=== PATIENT | male | born 1970 | race African-American/Black ===

== ENCOUNTER 2016-11-27 13:17 | Emergency (ER) | payer SELFPAY ==
[2016-11-27] MEDS ORDERED: Ibuprofen 800 MG TAB ONE (13:54)
--- NOTE | 2016-11-27 14:27 | ERRECORD ---
[facility] EMERGENCY RECORD HPI KNEE (13:44 BPIC) CHIEF COMPLAINT: Patient presents for evaluation of pain, to the left knee. HISTORIAN: History provided by patient, pt with sharp left knee pain and feels a popping sensation when he turns his knee since last friday. does not remember any injury or unusual activity. He went to work today, but standing in his boots made the knee hurt even worse. ROS (14:01 BPIC) CONSTITUTIONAL: Negative constitutional review of systems. EYES: Negative eye review of systems. ENT: Negative ears, nose, throat review of systems. CARDIOVASCULAR: Negative cardiovascular review of systems. RESPIRATORY: Negative respiratory review of systems. GI: Negative gastrointestinal review of systems. MUSCULOSKELETAL: see hpi. SKIN: Negative skin review of systems. PSYCHIATRIC: Negative psychiatric review of systems. PAST MEDICAL HISTORY MEDICAL HISTORY: No past medical history. (13:32 SFRE) MALE SURGICAL HISTORY: Patient has no surgical history. (13:32 SFRE) PSYCHIATRIC HISTORY: No previous psychiatric history. (13:32 SFRE) SOCIAL HISTORY: Patient drinks socially, Patient denies drug use, Patient has no smoking history. (13:32 SFRE) NOTES: I have reviewed and agree with the PMH/PSxH/FamHx/SocHx obtained by the nurse. (14:01 BPIC) KNOWN ALLERGIES No Known Drug Allergies CURRENT MEDICATIONS (13:28 SFRE) None VITAL SIGNS (13:26 SFRE) VITAL SIGNS: BP: 143/99, Pulse: 98, Resp: 18, Temp: 98.2 (Tympanic), Pain: 9 (Sharp), O2 sat: 100 on Room Air, Time: 11/27/2016 13:26. PHYSICAL EXAM (14:01 BPIC) CONSTITUTIONAL: Vital signs reviewed, Patient afebrile, Pulse normal, Blood pressure normal, Respiratory rate normal, Patient appears non toxic, Patient appears pain free, Patient alert and oriented to person, place and time. HEAD: Head exam included findings of head atraumatic, normocephalic. EYES: Eye exam included findings of eyelids normal to inspection, Extraocular muscles intact, Conjunctiva normal. &a-1R&a+25V*p+0X*b9248V*c202B*c15G*c2P*p-0X&a-25V&a+1R Name: Jaron Roberto SR, DOB: 1970 M46 MedRec: [id number] AcctNum: [id number] Prepared: FriNov 27, 2016 18:38 by Interface Page 1 of 3 pMD [facility] EMERGENCY RECORD ENT: Ear exam normal, Nose exam normal. NECK: Neck exam included findings of normal range of motion, Trachea midline. RESPIRATORY CHEST: Respiratory exam included findings of no respiratory distress, Chest exam included findings of chest movement symmetrical, Chest expansion equal. CARDIOVASCULAR: Cardiovascular exam included findings of heart rate regular rate and rhythm. LOWER EXTREMITY: tenderness to medial left knee. no ligament laxity. NEURO: Neuro exam findings include patient oriented to person, place and time, Speech normal. PSYCHIATRIC: Psychiatric exam included findings of patient oriented to person place and time, Normal affect. MEDICATION ADMINISTRATION SUMMARY Drug Name: ibuprofen, Dose Ordered: 800 mg, Route: Oral, Status: Given, Time: 14:00 11/27/2016, Detailed record available in Medication Service section. DOCTOR NOTES (14: BPIC) TEXT: I discussed the diagnosis with the patient prior to discharge. All questions were answered. There is no indication for admission currently and the patient will follow up with a primary care physician. Any pertinent labs or imaging were reviewed and dicussed with the patient. If any new or emergent symptoms occur, the patient will return to the emergency department. PROBLEM LIST No recorded problems DIAGNOSIS (14: BPIC) FINAL: PRIMARY: LEFT knee pain. PRESCRIPTION (14: BPIC) ibuprofen: TABLET : 800 mg : ORAL : Quantity: 800 Unit: mg Route: ORAL Schedule: every 8 hours PRN Dispense: 60 Unit: tab(s) May substitute. Refills: No Refills . NOTES: No Refills. traMADol: TABLET : 50 mg : ORAL : Quantity: 50 Unit: mg Route: ORAL Schedule: every 6 hours PRN Dispense: 20 Unit: tab(s) May substitute. Refills: No Refills . NOTES: ^s=No Refills No Refills. DISPOSITION PATIENT: Disposition Type: Discharge, Disposition: *Discharge &a-1R&a+25V*p+0X*v1145F*c202B*c15G*c2P*p-0X&a-25V&a+1R Name: Jaron Roberto : 1970 M46 MedRec: [id number] AcctNum: [id number] Prepared: FriNov 27, 2016 18:38 by Interface Page 2 of 3 pMD [facility] EMERGENCY RECORD Home, Condition: Good. (14:02 BPIC) Patient left the department. (14:19 SFRE) Anaya: BPIC=MD Luigi, Chon SFRE=ZAC Hebert, Denisha &a-1R&a+25V*p+0X*h0675Y*c202B*c15G*c2P*p-0X&a-25V&a+1R Name: Jaron Roberto : 1970 M46 MedRec: [id number] AcctNum: [id number] Prepared: FriNov 27, 2016 18:38 by Interface Page 3 of 3 pMD MTDD
--- NOTE | 2016-11-27 14:27 | PICIS ---
[facility] EMERGENCY RECORD TRIAGE (13:27 SFRE) TRIAGE NOTES: PAIN TO LEFT KNEE DENIES RECENT INJURY. (13:27 SFRE) PATIENT: NAME: Jaron Roberto SR, AGE: 46, GENDER: male, : Fri1970, TIME OF GREET: FriNov 27, 2016 13:18, PREFERRED LANGUAGE: Wolof, ETHNICITY: Not or , ECODE BILLING MAP: [facility], SSN: [id number], Zip Code: [address], KG WEIGHT: 83.46, PHONE: , , , PERSON ID: [id number], PCP: NO PCP. (13:27 SFRE) COMPLAINT: PAINFUL L KNEE. (13:27 SFRE) ADMISSION: URGENCY: 5 Fast Track, ADMISSION SOURCE: Home, TRANSPORT: Walk-in, BED: TRIAGE. (13:27 SFRE) ASSESSMENT: Symptoms began 11/23/2016 13:31. (13:32 SFRE) PAIN: Patient complains of pain described as, Pain is constant, Aggravating factors:, Pain exacerbated by extension, Pain exacerbated by movement. (13:32 SFRE) IMMUNIZATIONS: Flu vaccine not up to date. (13:32 SFRE) SIRS SCORING: Heart Rate 55-109 (0), Temp range 96.8-101.1 (0), respiratory rate 12-24 (0), Mental Status altered: no (0). (13:32 SFRE) TRIAGE SCREENING: Patient denies suicidal ideation, Patient denies presence of domestic violence. (13:32 SFRE) PROVIDERS: TRIAGE NURSE: Denisha Hebert RN. (13:27 SFRE) VITAL SIGNS: BP 143/99, Pulse 98, Resp 18, Temp 98.2, (Tympanic), Pain 9, (Sharp), O2 Sat 100, on Room Air, Time 11/27/2016 13:26. (13:26 SFRE) PREVIOUS VISIT ALLERGIES: No Known Drug Allergies. (13:27 SFRE) No Known Drug Allergies. (13:32 SFRE) KNOWN ALLERGIES No Known Drug Allergies CURRENT MEDICATIONS (13:28 SFRE) None VITAL SIGNS (13:26 SFRE) VITAL SIGNS: BP: 143/99, Pulse: 98, Resp: 18, Temp: 98.2 (Tympanic), Pain: 9 (Sharp), O2 sat: 100 on Room Air, Time: 11/27/2016 13:26. NURSING ASSESSMENT: EXTREMITY LOWER (13:50 SFRE) CONSTITUTIONAL: Patient arrives ambulatory, Gait steady, History obtained from patient, Patient appears comfortable, Patient cooperative, Patient alert, Oriented to person, place and time, Skin warm, Skin dry, Skin normal in color, Mucous membranes pink, Mucous membranes moist, Patient is well-groomed, Patient complains of LEFT KNEE. PAIN: sharp pain, shooting pain, to the left knee, Onset of pain 11/26/2016, on a scale &a-1R&a+25V*p+0X*s0235S*c202B*c15G*c2P*p-0X&a-25V&a+1R Name: Jaron Roberto SR : 1970 M46 MedRec: [id number] AcctNum: [id number] Prepared: FriNov 27, 2016 18:45 by Interface Page 1 of 5 pMD [facility] EMERGENCY RECORD 0-10 patient rates pain as 9, Pain exacerbated by, ambulation, bending, Nothing has been tried to alleviate the pain. RIGHT LOWER EXTREMITY: Right lower extremity assessment findings include capillary refill less than 2 seconds, Skin color normal, Skin temperature warm, Distal sensation intact, Muscle tone normal, Notes: DENIES INJURY. SAFETY: Side rails up, Cart/Stretcher in lowest position, Family at bedside, Call light within reach, Hospital ID band on. NURSING PROCEDURE: DISCHARGE NOTE (14:18 SFRE) DISCHARGE: Patient discharged to home, ambulating without assistance, driving self, unaccompanied, Summary of Care printed/ provided, Patient requested and was provided an electronic copy of Discharge Instructions, Discharge instructions given to patient, Simple or moderate discharge teaching performed, by ZAC OSBORNE, F/U WITH PCP. RX DIRECTED. RETURN TO ED NEEDED FOR NEW/CONCERNING OR WORSENING SYMPTOMS., Prescriptions given and instructions on side effects given, Name of prescription(s) given: TRAMADOL, IBUPRFEN, Above person(s) verbalized understanding of discharge instructions and follow-up care. NURSING PROCEDURE: NURSE NOTES (13:58 SFRE) NURSES NOTES: Notes: REQUESTING A STRONGER PRESCRIPTION THAN TRAMADOL. NURSING PROCEDURE: SPLINTING (13:59 SFRE) SPLINTING: Splinting indicated for pain control, Splint applied to, the left knee, by ZAC OSBORNE, 4 inch shanika wrap applied, Immobilized in position of comfort. SAFETY: Side rails up, Cart/Stretcher in lowest position, Family at bedside, Call light within reach, Hospital ID band on. ORDER DETAILS Order Name: XR Knee Lt 4 View STANDARD, Status: Active, Time: 13:43 11/27/2016, User: [facility], - Ordered for: MD Meyers Bryan, - Entered by: MD Meyers Bryan - FriNov 27, 2016 13:43, - Quantity: 1. MEDICATION ADMINISTRATION SUMMARY Drug Name: ibuprofen, Dose Ordered: 800 mg, Route: Oral, Status: Given, Time: 14:00 11/27/2016, Detailed record available in Medication Service section. MEDICATION SERVICE (14:00 [facility]) ibuprofen: Order: ibuprofen - Dose: 800 mg : Oral Ordered by: Chon Meyers MD &a-1R&a+25V*p+0X*k2877R*c202B*c15G*c2P*p-0X&a-25V&a+1R Name: Jaron Roberto : 1970 M46 MedRec: [id number] AcctNum: [id number] Prepared: FriNov 27, 2016 18:45 by Interface Page 2 of 5 pMD [facility] EMERGENCY RECORD Entered by: Chon Meyers MD FriNov 27, 2016 13:43 , Acknowledged by: Denisha Hebert RN FriNov 27, 2016 13:50 Documented as given by: Denisha Hebert RN FriNov 27, 2016 14:00 Patient, Medication, Dose, Route and Time verified prior to administration. Amount given: 800MG, Site: Medication administered P.O., Correct patient, time, route, dose and medication confirmed prior to administration, Patient advised of actions and side-effects prior to administration, Allergies confirmed and medications reviewed prior to administration, Patient in position of comfort, Side rails up, Cart in lowest position, Family at bedside. HPI KNEE (13:44 BPIC) CHIEF COMPLAINT: Patient presents for evaluation of pain, to the left knee. HISTORIAN: History provided by patient, pt with sharp left knee pain and feels a popping sensation when he turns his knee since last friday. does not remember any injury or unusual activity. He went to work today, but standing in his boots made the knee hurt even worse. ROS (14:01 BPIC) CONSTITUTIONAL: Negative constitutional review of systems. EYES: Negative eye review of systems. ENT: Negative ears, nose, throat review of systems. CARDIOVASCULAR: Negative cardiovascular review of systems. RESPIRATORY: Negative respiratory review of systems. GI: Negative gastrointestinal review of systems. MUSCULOSKELETAL: see hpi. SKIN: Negative skin review of systems. PSYCHIATRIC: Negative psychiatric review of systems. PAST MEDICAL HISTORY MEDICAL HISTORY: No past medical history. (13:32 SFRE) MALE SURGICAL HISTORY: Patient has no surgical history. (13:32 SFRE) PSYCHIATRIC HISTORY: No previous psychiatric history. (13:32 SFRE) SOCIAL HISTORY: Patient drinks socially, Patient denies drug use, Patient has no smoking history. (13:32 SFRE) NOTES: I have reviewed and agree with the PMH/PSxH/FamHx/SocHx obtained by the nurse. (14:01 BPIC) PHYSICAL EXAM (14:01 BPIC) CONSTITUTIONAL: Vital signs reviewed, Patient afebrile, Pulse normal, Blood pressure normal, Respiratory rate normal, Patient appears non toxic, Patient appears pain free, Patient alert and oriented to person, place and time. HEAD: Head exam included findings of head atraumatic, normocephalic. EYES: Eye exam included findings of eyelids normal to inspection, &a-1R&a+25V*p+0X*b2611Y*c202B*c15G*c2P*p-0X&a-25V&a+1R Name: Jaron Roberto : 1970 M46 MedRec: [id number] AcctNum: [id number] Prepared: FriNov 27, 2016 18:45 by Interface Page 3 of 5 pMD [facility] EMERGENCY RECORD Extraocular muscles intact, Conjunctiva normal. ENT: Ear exam normal, Nose exam normal. NECK: Neck exam included findings of normal range of motion, Trachea midline. RESPIRATORY CHEST: Respiratory exam included findings of no respiratory distress, Chest exam included findings of chest movement symmetrical, Chest expansion equal. CARDIOVASCULAR: Cardiovascular exam included findings of heart rate regular rate and rhythm. LOWER EXTREMITY: tenderness to medial left knee. no ligament laxity. NEURO: Neuro exam findings include patient oriented to person, place and time, Speech normal. PSYCHIATRIC: Psychiatric exam included findings of patient oriented to person place and time, Normal affect. EVENTS TRANSFER: Triage to Emergency Triage. (FriNov 27, 2016 13:27 SFRE) Emergency Triage to Main ED -04. (13:28 SFRE) Removed from Emergency Main ED -04. (14:19 SFRE) DOCTOR NOTES (14:02 BPIC) TEXT: I discussed the diagnosis with the patient prior to discharge. All questions were answered. There is no indication for admission currently and the patient will follow up with a primary care physician. Any pertinent labs or imaging were reviewed and dicussed with the patient. If any new or emergent symptoms occur, the patient will return to the emergency department. PROBLEM LIST No recorded problems DIAGNOSIS (14:02 BPIC) FINAL: PRIMARY: LEFT knee pain. DISPOSITION PATIENT: Disposition Type: Discharge, Disposition: *Discharge Home, Condition: Good. (14:02 BPIC) Patient left the department. (14:19 SFRE) INSTRUCTION (14:03 BPIC) DISCHARGE: KNEE PAIN, MENISCUS INJURY (POSSIBLE). FOLLOWUP: MARLEEN, -, Primary Care Referral Line, , MD Andrzej, Elias, Orthopedics, [address], [address], [facility] [address], . SPECIAL: Thank you for choosing [facility] for your care today! Please follow up with your doctor in the next 2-3 days. Return to the emergency department with any emergent or worsening concerns. God Bless you!. &a-1R&a+25V*p+0X*q0478T*c202B*c15G*c2P*p-0X&a-25V&a+1R Name: Jaron Roberto : 1970 M46 MedRec: [id number] AcctNum: [id number] Prepared: FriNov 27, 2016 18:45 by Interface Page 4 of 5 pMD [facility] EMERGENCY RECORD PRESCRIPTION (14:02 BPIC) ibuprofen: TABLET : 800 mg : ORAL : Quantity: 800 Unit: mg Route: ORAL Schedule: every 8 hours PRN Dispense: 60 Unit: tab(s) May substitute. Refills: No Refills . NOTES: No Refills. traMADol: TABLET : 50 mg : ORAL : Quantity: 50 Unit: mg Route: ORAL Schedule: every 6 hours PRN Dispense: 20 Unit: tab(s) May substitute. Refills: No Refills . NOTES: ^s=No Refills No Refills. ADMIN DIGITAL SIGNATURE: ZAC Hebert Stacey. (14:19 [facility]) MD Meyers Bryan. (18:30 [facility]) Anaya: BPIC=MD Meyers Bryan SFRE=ZAC Hebert Stacey &a-1R&a+25V*p+0X*a0236T*c202B*c15G*c2P*p-0X&a-25V&a+1R Name: LourdesJaron salter : 1970 M46 MedRec: [id number] AcctNum: [id number] Prepared: FriNov 27, 2016 18:45 by Interface Page 5 of 5 pMD MTDD
== END 2016-11-27 14:12 | disposition home or self-care (01) ==
LOC: MADERS 13:17
DX: M25.562 Pain in left knee (principal)
CPT/HCPCS: 99283

== ENCOUNTER 2017-11-13 16:04 | Emergency (ER) | payer SELFPAY ==
[2017-11-13] MEDS ORDERED: AMOXicillin 250 MG CAP ONE (17:21)
[2017-11-13] MEDS ORDERED: Benzonatate 100 MG CAP ONE (17:21)
== END 2017-11-13 17:40 | disposition home or self-care (01) ==
LOC: MADERS 16:04
DX: J20.9 Acute bronchitis, unspecified (principal); G47.00 Insomnia, unspecified
CPT/HCPCS: 96372; J1040

== ENCOUNTER 2018-05-15 09:22 | Emergency (ER) | payer SELFPAY ==
[2018-05-15] MEDS ORDERED: AMOXicillin 250 MG CAP ONE (10:12)
[2018-05-15] MEDS ORDERED: Benzonatate 100 MG CAP ONE (10:12)
== END 2018-05-15 10:20 | disposition home or self-care (01) ==
LOC: MADERS 09:22
DX: J20.9 Acute bronchitis, unspecified (principal); F41.9 Anxiety disorder, unspecified; I10 Essential (primary) hypertension; Z79.899 Other long term (current) drug therapy
CPT/HCPCS: 99283

== ENCOUNTER 2018-06-29 17:19 | Emergency (ER) | payer SELFPAY | END 2018-06-29 19:43 | disposition home or self-care (01) | LOC: MADERS 17:19 | DX: T24.202A Burn of second degree of unspecified site of left lower limb, except ankle and foot, initial encounter (principal); T24.101A Burn of first degree of unspecified site of right lower limb, except ankle and foot, initial encounter; F41.9 Anxiety disorder, unspecified; I10 Essential (primary) hypertension; Z79.899 Other long term (current) drug therapy; X19.XXXA Contact with other heat and hot substances, initial encounter | CPT/HCPCS: 16020 ==

== ENCOUNTER 2018-07-05 20:43 | Emergency (ER) | payer SELFPAY | END 2018-07-05 21:21 | disposition home or self-care (01) | LOC: MADERS 20:43 | DX: T24.232A Burn of second degree of left lower leg, initial encounter (principal); F41.9 Anxiety disorder, unspecified; I10 Essential (primary) hypertension; X19.XXXA Contact with other heat and hot substances, initial encounter | CPT/HCPCS: 99283 ==

== ENCOUNTER 2018-09-25 09:04 | Emergency (ER) | payer SELFPAY ==
[2018-09-25] MEDS ORDERED: Benzonatate 100 MG CAP ONE (09:51)
--- NOTE | 2018-09-25 11:22 | RAD ---
PA AND LATERAL VIEWS CHEST: Date: 09/25/18 HISTORY: Cough. FINDINGS: The heart size is normal. The lungs are expanded without focal areas of consolidation, pneumothorax, or pleural effusions. No acute osseous abnormalities are seen. IMPRESSION: No radiographic evidence of acute cardiopulmonary process. POS: [facility]
== END 2018-09-25 11:02 | disposition home or self-care (01) ==
LOC: MADERS 09:04
DX: J20.9 Acute bronchitis, unspecified (principal); I10 Essential (primary) hypertension; F41.9 Anxiety disorder, unspecified; Z79.899 Other long term (current) drug therapy
CPT/HCPCS: 71046

== ENCOUNTER 2019-01-18 11:48 | Emergency (ER) | payer SELFPAY ==
--- NOTE | 2019-01-18 14:01 | RAD ---
RADIOGRAPH RIGHT FIRST DIGIT 3 VIEWS: Date: 01/18/19 HISTORY: 48-year-old male with right thumb pain. FINDINGS: No fracture or dislocation. No periostitis or destructive osseous lesion. Mild to moderate DJD at fir st MCP joint. No severe joint space narrowing or erosions. Mild DJD at first IP. IMPRESSION: 1. 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 2. No fracture. POS: [facility]
== END 2019-01-18 12:55 | disposition home or self-care (01) ==
LOC: MADERS 11:48
DX: S63.601A Unspecified sprain of right thumb, initial encounter (principal); I10 Essential (primary) hypertension; F41.9 Anxiety disorder, unspecified; Z79.899 Other long term (current) drug therapy; X58.XXXA Exposure to other specified factors, initial encounter

== ENCOUNTER 2019-08-12 20:18 | Emergency (ER) | payer SELFPAY ==
--- NOTE | 2019-08-12 23:27 | CT ---
NONCONRAST ABDOMEN AND PELVIS CT; 08/12/19 INDICATION: Right sided abdominal pain. COMPARISON: None. FINDINGS: Imaged lung bases are clear. Right kidney reveals no evidence of urolithiasis or obstructive uropathy . 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 No urolithiasis or obstructive uropathy of the pelvic kidney is iden tified. The urinary bladder demonstrates wall prominence and is incompletely distended. Mild perive sicular fat stranding is present. Solid abdominal organs, bowel and lymph nodes are limited in assess ment without IV or enteric contrast. There is mild vascular calcification. No free air. No acute osse ous pathology. IMPRESSION: No urolithiasis or obstructive uropathy. Absence of a kidney within the left renal fossa, with the pr esence of a kidney at the right pelvis. Urinary bladder wall thickening, although incompletely distended. Correlate clinically to exclude duke dence of cystitis as there is mild perivesicular fat stranding. POS: [facility]
[2019-08-12 23:40] LABS: Bilirubin Negative (Negative); Blood, Urine Negative (Negative); Clarity Clear (Clear); Glucose, Urine (Dipstick) Negative (Negative); Leukocyte Negative (Negative); Nitrite Negative (Negative); Protein, Urine (Dipstick) Negative (Neg-Trace); Urobilinogen 0.2 mg/dL (Less than 2)
[2019-08-13] MEDS ORDERED: Acetaminophen 500 MG TAB ONE (00:13)
[2019-08-13] MEDS ORDERED: Ibuprofen 800 MG TAB ONE (00:13)
[2019-08-13] MEDS ORDERED: Dicyclomine 10 MG CAP ONE (00:13)
== END 2019-08-13 00:10 | disposition home or self-care (01) ==
LOC: MADERS 20:18
DX: R10.31 Right lower quadrant pain (principal); R10.813 Right lower quadrant abdominal tenderness; I10 Essential (primary) hypertension; F41.9 Anxiety disorder, unspecified
CPT/HCPCS: 74176; 81003

== ENCOUNTER 2019-10-31 19:35 | Emergency (ER) | payer SELFPAY | END 2019-10-31 20:05 | disposition home or self-care (01) | LOC: MADERS 19:35 | DX: J06.9 Acute upper respiratory infection, unspecified (principal); I10 Essential (primary) hypertension; F41.9 Anxiety disorder, unspecified | CPT/HCPCS: 99283 ==

== ENCOUNTER 2019-11-09 14:07 | Emergency (ER) | payer SELFPAY | END 2019-11-09 14:40 | disposition home or self-care (01) | LOC: MADERS 14:07 | DX: K04.7 Periapical abscess without sinus (principal); I88.9 Nonspecific lymphadenitis, unspecified | CPT/HCPCS: 99283 ==

== ENCOUNTER 2020-08-04 10:02 | Emergency (ER) | payer SELFPAY ==
[2020-08-04 10:56] LABS: #Basophils 0.1 thou/uL (0.0-0.2); #Eosinphils 0.1 thou/uL (0.0-0.7); #Lymphocytes 1.8 thou/uL (1.20-3.40); #Monocytes 0.4 thou/uL (0.11-0.59); #Neutrophils 2.3 thou/uL (1.40-6.50); %Eosinophils 2.1 % (0.0-10.0); %Lymphocytes 39.5 % (21.0-51.0); %Monocytes 7.7 % (0.0-10.0); %Neutrophils 48.8 % (42.0-75.0); Hemoglobin 14.6 g/dL (14.0-18.0); Mean Corpuscular Hemoglobin 31.7 pg (27.0-31.0); Mean Corpuscular Volume 93.2 fL (78.0-98.0); Mean Platelet Volume 6.7 fL (7.4-10.4); Platelet Count 309 thou/uL (130-400); Red Blood Cell (RBC) Count 4.62 mill/uL (4.70-6.10); White Blood Cell (WBC) Count 4.6 thou/uL (4.8-10.8)
[2020-08-04] MEDS ORDERED: Ketorolac Tromethamine 30 MG/ML VIAL ONE (10:57)
[2020-08-04] MEDS ORDERED: Ondansetron ODT 4 MG TAB ONE (10:57)
[2020-08-04 11:15] LABS: ALT (SGPT) 30 U/L (8-55); AST (SGOT) 31 U/L (5-34); Albumin 4.2 g/dL (3.5-5.0); Alkaline Phosphatase 81 U/L (40-110); Anion Gap 19 mmol/L (10-20); BUN (Urea Nitrogen) 13 mg/dL (8.4-25.7); Bilirubin, Total 0.6 mg/dL (0.2-1.2); Calc. Creatinine Clearance 0 mL/min (70-130); Carbon Dioxide 20 mmol/L (22-29); Chloride 103 mmol/L (98-107); Estimated GFR-MDRD Greater than 90; Globulin 3.6 g/dL (2.4-3.5); Glucose 103 mg/dL (70-105); Lipase 23 U/L (8-78); Potassium 3.8 mmol/L (3.5-5.1); Protein, Total 7.8 g/dL (6.0-8.3); Sodium 138 mmol/L (136-145)
--- NOTE | 2020-08-04 11:40 | CT ---
CT Abdomen Pelvis WO Con 08/04/2020 10:38 AM HISTORY: Right-sided abdominal pain. COMPARISON: 08/12/2019 Technique: Multiple contiguous axial CT images are obtained through the abdomen and pelvis without IV contrast. Coronal reformats are provided. FINDINGS: This examination is limited for the evaluation of solid organs and vascular structures due to the lac k of intravenous contrast. Lower Chest: Lung bases are clear. Liver: Borderline enlarged in craniocaudal dimensions measuring 18 cm. There is suggestion of a subce ntimeter hypodense lesion in the posterior segment right hepatic lobe unchanged from prior exam. Gallbladder: Small increased density focus in the gallbladder which may represent a gallbladder calcu alejandra. Increased density polyp is a possibility. This did appear to be present on prior exam and measures approximately 4 mm. Pancreas: Grossly normal nonenhanced CT appearance. Spleen: Grossly normal nonenhanced CT appearance. Adrenals: Grossly normal nonenhanced CT appearance. 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 Right kidney is in normal location. No renal or ureteral calculi are seen bilaterally, and there is no hydronephrosis. Urinary bladder has a normal CT appearance. Reproductive Organs: No pelvic masses. Lymph Nodes: No enlarged lymph nodes. Bowel: Normal caliber. Appendix: The appendix is normal in caliber. Peritoneum: No free fluid, free air, or fluid collection. Retroperitoneum: within normal limits. Vessels: Minimal scattered vascular calcifications.. Abdominal Wall: Small primarily fat containing umbilical hernia. A loop of small bowel does extend ju st into the hernia defect. There is no evidence of a bowel obstruction. Bones: No lytic or sclerotic osseous lesions. IMPRESSION: 1. 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 No r enal or ureteral calculi are seen bilaterally. 2. A 4 mm increased density focus is seen in the midportion of the gallbladder lumen also seen on evin or study which may represent a gallbladder calculus or small polyp. 3. Borderline enlargement of liver in craniocaudal dimensions. 4. Umbilical hernia primarily containing fat, but a loop of small bowel does extend just within the h ernia defect
== END 2020-08-04 11:55 | disposition home or self-care (01) ==
LOC: MADERS 10:02
DX: R10.9 Unspecified abdominal pain (principal); I10 Essential (primary) hypertension
CPT/HCPCS: 36415; 74176; 80053; 83690; 85025; 96372; J1885; Q0162

== ENCOUNTER 2020-08-26 20:37 | Emergency (ER) | payer SELFPAY ==
[2020-08-26] MEDS ORDERED: Ondansetron PF 4 MG/2 ML Vial ONE (21:31)
[2020-08-26] MEDS ORDERED: Morphine 4 MG/ML VIAL ONE (21:31)
[2020-08-26] MEDS ORDERED: Sodium Chloride 0.9% 1,000 ML ONE (21:31)
--- NOTE | 2020-08-26 21:46 | RAD ---
Acute abdominal series INDICATION: Abdominal pain. COMPARISON: CT abdomen and pelvis dated August 04, 2020 and a chest radiograph dated September 25 8 FINDINGS: CHEST: LUNGS: Clear. Cardiomediastinal silhouette: Normal. Pleural effusion or pneumothorax: Negative. Pneumoperitoneum: Negative. ABDOMEN: Bowel gas pattern: Unobstructed. Abnormal calcifications: Small phleboliths seen within the lower left pelvis Osseous structures: No acute osseous abnormality is demonstrated. Additional findings: None. IMPRESSION: 1. No acute abnormality.
[2020-08-26 22:14] LABS: Bilirubin Negative (Negative); Blood, Urine Negative (Negative); Clarity Clear (Clear); Glucose, Urine (Dipstick) Negative (Negative); Ketone, Urine 15 mg/dL (Negative); Leukocyte Negative (Negative); Nitrite Negative (Negative); Protein, Urine (Dipstick) Negative (Neg-Trace); Urobilinogen 0.2 mg/dL (Less than 2); pH, Urine 5.5 (5.0-9.0)
[2020-08-26 22:19] LABS: Hemoglobin 13.2 g/dL (14.0-18.0); Mean Corpuscular HGB CONC 32.9 g/dL (32.0-36.0); Mean Corpuscular Hemoglobin 31.5 pg (27.0-31.0); Mean Corpuscular Volume 95.7 fL (78.0-98.0); Mean Platelet Volume 6.4 fL (7.4-10.4); Platelet Count 315 thou/uL (130-400); RBC Distribution Width 11.2 % (11.5-14.5); White Blood Cell (WBC) Count 8.4 thou/uL (4.8-10.8)
[2020-08-26 22:33] LABS: ALT (SGPT) 24 U/L (8-55); AST (SGOT) 23 U/L (5-34); Albumin 4.1 g/dL (3.5-5.0); Alkaline Phosphatase 74 U/L (40-110); Anion Gap 17 mmol/L (10-20); BUN (Urea Nitrogen) 11 mg/dL (8.4-25.7); Bilirubin, Total 0.8 mg/dL (0.2-1.2); Calc. Creatinine Clearance 0 mL/min (70-130); Calcium 9.6 mg/dL (7.8-10.44); Carbon Dioxide 19 mmol/L (22-29); Chloride 108 mmol/L (98-107); Estimated GFR-MDRD Greater than 90; Globulin 3.8 g/dL (2.4-3.5); Glucose 103 mg/dL (70-105); Lipase 12 U/L (8-78); Potassium 3.6 mmol/L (3.5-5.1); Protein, Total 7.9 g/dL (6.0-8.3); Sodium 140 mmol/L (136-145)
[2020-08-26] MEDS ORDERED: Magnesium Citrate 300 ML BOT ONE ×2 (22:35→22:52)
[2020-08-26] MEDS ORDERED: Fleet Enema 133 ML BOT ONE (22:36)
[2020-08-26 23:06] LABS: Band 1 % (5-11); Eosinophils 2 % (0-10); Lymphocytes 20 % (21-51); MDiff Complete? YES; Monocytes 9 % (0-10); Neutrophil 64 % (42-75); Platelet Morphology Comment Appears Adequate; RBC Morphology Normal; Reactive Lymphocytes 4 % (0-10)
== END 2020-08-26 23:10 | disposition home or self-care (01) ==
LOC: MADERS 20:37
DX: K59.00 Constipation, unspecified (principal); I10 Essential (primary) hypertension; F17.220 Nicotine dependence, chewing tobacco, uncomplicated
CPT/HCPCS: 74022; 80053; 81003; 82274; 83605; 83690; 84484; 85025; 96374; 96375; J2270; J2405; J7050

== ENCOUNTER 2020-12-09 22:21 | Emergency (ER) | payer SELFPAY ==
[2020-12-09] MEDS ORDERED: Dexamethasone 4 mg/ml Vial ONE (23:08)
== END 2020-12-09 23:14 | disposition home or self-care (01) ==
LOC: MADERS 22:21
DX: J30.9 Allergic rhinitis, unspecified (principal); F17.220 Nicotine dependence, chewing tobacco, uncomplicated
CPT/HCPCS: 99283; J1100

== ENCOUNTER 2021-05-14 21:01 | Emergency (ER) | payer SELFPAY ==
[2021-05-14 22:08] LABS: #Basophils 0.1 thou/uL (0.0-0.2); #Eosinphils 0.1 thou/uL (0.0-0.7); #Monocytes 0.5 thou/uL (0.11-0.59); #Neutrophils 3.2 thou/uL (1.40-6.50); %Basophils 1.1 % (0.0-1.0); %Eosinophils 1.5 % (0.0-10.0); %Lymphocytes 33.7 % (21.0-51.0); %Monocytes 8.1 % (0.0-10.0); %Neutrophils 55.6 % (42.0-75.0); Hemoglobin 15.9 g/dL (14.0-18.0); Mean Corpuscular Hemoglobin 31.4 pg (27.0-31.0); Mean Corpuscular Volume 98.1 fL (78.0-98.0); Platelet Count 287 thou/uL (130-400); RBC Distribution Width 11.9 % (11.5-14.5); Red Blood Cell (RBC) Count 5.06 mill/uL (4.70-6.10); White Blood Cell (WBC) Count 5.8 thou/uL (4.8-10.8)
[2021-05-14 22:28] LABS: ALT (SGPT) 20 U/L (8-55); AST (SGOT) 17 U/L (5-34); Albumin 4.1 g/dL (3.5-5.0); Alkaline Phosphatase 82 U/L (40-110); Anion Gap 15 mmol/L (10-20); BUN (Urea Nitrogen) 10 mg/dL (8.4-25.7); Bilirubin, Total 0.3 mg/dL (0.2-1.2); Calc. Creatinine Clearance 0 mL/min (70-130); Calcium 9.5 mg/dL (7.8-10.44); Carbon Dioxide 21 mmol/L (22-29); Chloride 104 mmol/L (98-107); Globulin 3.7 g/dL (2.4-3.5); Glucose 89 mg/dL (70-105); Potassium 3.9 mmol/L (3.5-5.1); Protein, Total 7.8 g/dL (6.0-8.3); Sodium 136 mmol/L (136-145)
== END 2021-05-14 23:20 | disposition home or self-care (01) ==
LOC: MADERS 21:01
DX: R07.89 Other chest pain (principal); D17.22 Benign lipomatous neoplasm of skin and subcutaneous tissue of left arm; R20.0 Anesthesia of skin; I10 Essential (primary) hypertension; M79.644 Pain in right finger(s); F17.220 Nicotine dependence, chewing tobacco, uncomplicated; Z87.442 Personal history of urinary calculi
CPT/HCPCS: 36415; 71045; 80053; 84484; 85025; 93005; 94760

== ENCOUNTER 2021-05-24 10:54 | Emergency (ER) | payer SELFPAY ==
[2021-05-24 11:46] LABS: Hemoglobin 14.8 g/dL (14.0-18.0); Mean Corpuscular HGB CONC 32.3 g/dL (32.0-36.0); Mean Corpuscular Hemoglobin 31.5 pg (27.0-31.0); Mean Corpuscular Volume 97.6 fL (78.0-98.0); Mean Platelet Volume 6.9 fL (7.4-10.4); Platelet Count 299 thou/uL (130-400); RBC Distribution Width 11.7 % (11.5-14.5); Red Blood Cell (RBC) Count 4.69 mill/uL (4.70-6.10); White Blood Cell (WBC) Count 4.2 thou/uL (4.8-10.8)
[2021-05-24 11:57] LABS: Anisocytosis SLIGHT = 6-15 cells (100X) (0-5/hpf); Lymphocytes 59 % (21-51); MDiff Complete? YES; Manual Diff?? YES; Monocytes 7 % (0-10); Neutrophil 34 % (42-75); Platelet Morphology Comment Appears Adequate
[2021-05-24 11:58] LABS: ALT (SGPT) 20 U/L (8-55); AST (SGOT) 21 U/L (5-34); Alkaline Phosphatase 77 U/L (40-110); Anion Gap 16 mmol/L (10-20); BUN (Urea Nitrogen) 11 mg/dL (8.4-25.7); Bilirubin, Total 0.4 mg/dL (0.2-1.2); Calc. Creatinine Clearance 0 mL/min (70-130); Calcium 9.2 mg/dL (7.8-10.44); Carbon Dioxide 22 mmol/L (22-29); Chloride 105 mmol/L (98-107); Globulin 3.4 g/dL (2.4-3.5); Glucose 100 mg/dL (70-105); Magnesium 2.2 mg/dL (1.6-2.6); Protein, Total 7.4 g/dL (6.0-8.3); Sodium 139 mmol/L (136-145)
[2021-05-24] MEDS ORDERED: hydrOXYzine 25 MG TAB ONE (14:31)
== END 2021-05-24 16:19 | disposition home or self-care (01) ==
LOC: MADERS 10:54
DX: R07.9 Chest pain, unspecified (principal); F17.220 Nicotine dependence, chewing tobacco, uncomplicated
CPT/HCPCS: 36415; 71045; 80053; 83735; 83880; 84484; 85025; 93005

== ENCOUNTER 2021-07-19 12:39 | Emergency (ER) | payer SELFPAY ==
[2021-07-19] MEDS ORDERED: Benzonatate 100 MG CAP ONE (13:58)
[2021-07-19] MEDS ORDERED: Dexamethasone 4 MG TAB ONE (13:58)
== END 2021-07-19 14:05 | disposition home or self-care (01) ==
LOC: MADERS 12:39
DX: J20.9 Acute bronchitis, unspecified (principal); J02.9 Acute pharyngitis, unspecified; T78.40XA Allergy, unspecified, initial encounter; K21.9 Gastro-esophageal reflux disease without esophagitis; I10 Essential (primary) hypertension; Z87.442 Personal history of urinary calculi; Z87.19 Personal history of other diseases of the digestive system; Z79.899 Other long term (current) drug therapy
CPT/HCPCS: 99283; J8540

== ENCOUNTER 2021-12-13 16:41 | Emergency (ER) | payer BC, SELFPAY ==
[2021-12-13] MEDS ORDERED: Dexamethasone 10 MG/ML VIAL ONE (18:53)
== END 2021-12-13 19:09 | disposition home or self-care (01) ==
LOC: MADERS 16:41
DX: T78.40XA Allergy, unspecified, initial encounter (principal); I10 Essential (primary) hypertension; K21.9 Gastro-esophageal reflux disease without esophagitis
CPT/HCPCS: 96372; 99283; J1100